=== PATIENT | male | born 1960 | race Caucasian/White ===

== ENCOUNTER → 2016-08-08 | Outpatient (CLI) | payer BC ==
[2016-08-08 10:48] LABS: CHOL/HDL RATIO 4.48 RATIO (0-4.0); LDL CHOLESTEROL,CALCULATED 39.8 mg/dL
[2016-08-08 10:49] LABS: BUN/CREATININE RATIO 20.76 (6-20); CALCIUM 9.4 mg/dL (8.7-10.7); SERUM ALBUMIN 4.3 g/dL (3.5-4.8)
[2016-08-08 11:02] LABS: CREATININE, URINE 69.1 MG/DL (15-500)
[2016-08-08 12:30] LABS: HEMOGLOBIN A1C 9.69 % (4.2-6.0)
== END ==
LOC: LAB 10:16
PROVIDERS: ATTEND Internal Medicine
DX: E11.9 Type 2 diabetes mellitus without complications (principal); Z79.4 Long term (current) use of insulin; E78.5 Hyperlipidemia, unspecified; I10 Essential (primary) hypertension
CPT/HCPCS: 36415; 80053; 80061; 82043; 82550; 83036